=== PATIENT | male | born 2000 | race African-American/Black ===

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

== ENCOUNTER 2025-04-29 18:41 | Emergency (ER) | payer MEDICAID ==
[~2025-04-29] VITALS: Ht 177.8 cm; Wt 102.0 kg
[~2025-04-29 18:41] MED LIST changes: +DIPH25CA83 PO; +PANT-47 PO; -PHE12.5T PO; +PROC-8 PO; +PROM12.512 PO
[2025-04-29 18:46] VITALS: BP 153/75; PULSE 81; RESP 15; O2SAT 99
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
[2025-04-29] MEDS: TETanus/Pertussis (Acell)/Diphther VAC/PF (Tdap-Adult) 0.5ml syringe IMVAC ONE (21:12)
== END 2025-04-29 21:26 | disposition home or self-care (01) ==
LOC: ER 18:42
DX: S40.812A Abrasion of left upper arm, initial encounter (principal); S40.811A Abrasion of right upper arm, initial encounter; J44.9 Chronic obstructive pulmonary disease, unspecified; Z90.49 Acquired absence of other specified parts of digestive tract; X58.XXXA Exposure to other specified factors, initial encounter; Y93.89 Activity, other specified; Y92.89 Other specified places as the place of occurrence of the external cause; Y99.8 Other external cause status
CPT/HCPCS: 90471; 90715; 99283